=== PATIENT | female | born 1935 | race Caucasian/White ===

== ENCOUNTER 2017-10-01 02:47 | Emergency (ER) | payer MEDICARE ==
[~2017-10-01] VITALS: Ht 167.6 cm; Wt 73.6 kg
[~2017-10-01 02:47] MED LIST: AMLO2.5T2 PO; DIT5T PO; FENO160T30 PO; GLIP2.5T17 PO; LISI-232 PO; SYN0.025T PO
[2017-10-01] MEDS ORDERED: fentaNYL/PF 50MCG/1 ML 2ML syringe IV ONE (03:35)
[2017-10-01] MEDS ORDERED: normal saline 1000ml 1,000 ML IV ONE (03:35)
[2017-10-01] MEDS ORDERED: ondansetron/PF 4mg/2ml inj IV ONE (03:35)
[2017-10-01] MEDS ORDERED: propofol 10mg/ml 20ml vial IV ONE (03:35)
[2017-10-01] MEDS ORDERED: ACET-2615 PO (05:13)
[2017-10-01] MEDS ORDERED: acetaminophen 325mg tablet PO ONE (05:15)
[2017-10-01 05:36] VITALS: BP 198/109
== END 2017-10-01 05:42 | disposition home or self-care (01) ==
LOC: ER 02:48
DX: S43.005A Unspecified dislocation of left shoulder joint, initial encounter (principal); M25.522 Pain in left elbow; Z85.3 Personal history of malignant neoplasm of breast; Z90.49 Acquired absence of other specified parts of digestive tract; Z90.89 Acquired absence of other organs; Z88.2 Allergy status to sulfonamides; Z88.8 Allergy status to other drugs, medicaments and biological substances; Z88.5 Allergy status to narcotic agent; Z79.899 Other long term (current) drug therapy; W01.0XXA Fall on same level from slipping, tripping and stumbling without subsequent striking against object, initial encounter; Y93.89 Activity, other specified; Y92.89 Other specified places as the place of occurrence of the external cause; Y99.8 Other external cause status
CPT/HCPCS: 23650; 73020; 73030; 73080; 93005; 96374; 96375; 99285; A4565; J2405; J2704; J3010; 99152; A4620

== ENCOUNTER 2017-10-10 14:12 | Outpatient (CLI) | payer MEDICARE ==
[~2017-10-10 14:12] MED LIST changes: +ACET-2615 PO
[2017-10-10 14:41] VITALS: BP 167/93
== END 2017-10-10 14:50 | disposition home or self-care (01) ==
LOC: ORTHO 14:12
PROVIDERS: ATTEND Nurse Practitioner Family
DX: S43.005A Unspecified dislocation of left shoulder joint, initial encounter (principal); E11.9 Type 2 diabetes mellitus without complications; Z96.642 Presence of left artificial hip joint; Z88.2 Allergy status to sulfonamides; Z88.8 Allergy status to other drugs, medicaments and biological substances; Z88.6 Allergy status to analgesic agent; Z90.710 Acquired absence of both cervix and uterus; Z85.3 Personal history of malignant neoplasm of breast; Z90.12 Acquired absence of left breast and nipple; W19.XXXA Unspecified fall, initial encounter; Y93.89 Activity, other specified; Y92.89 Other specified places as the place of occurrence of the external cause; Y99.8 Other external cause status
CPT/HCPCS: 73030; 99213

== ENCOUNTER 2017-10-31 15:14 | Outpatient (CLI) | payer MEDICARE ==
[2017-10-31 15:18] VITALS: BP 165/104
== END 2017-10-31 15:55 | disposition home or self-care (01) ==
LOC: ORTHO 15:14
PROVIDERS: ATTEND Nurse Practitioner Family
DX: S43.005D Unspecified dislocation of left shoulder joint, subsequent encounter (principal); I10 Essential (primary) hypertension; E11.9 Type 2 diabetes mellitus without complications; Z88.2 Allergy status to sulfonamides; Z88.8 Allergy status to other drugs, medicaments and biological substances; Z79.899 Other long term (current) drug therapy; Z90.710 Acquired absence of both cervix and uterus; Z96.642 Presence of left artificial hip joint; Z90.12 Acquired absence of left breast and nipple; Z85.3 Personal history of malignant neoplasm of breast; W19.XXXD Unspecified fall, subsequent encounter
CPT/HCPCS: 73030; 99213

== ENCOUNTER 2017-12-06 15:12 | Outpatient (CLI) | payer MEDICARE ==
[2017-12-06 14:58] VITALS: BP 216/109
[~2017-12-06 15:12] MED LIST changes: -ACET-2615 PO
== END 2017-12-06 15:30 | disposition home or self-care (01) ==
LOC: ORTHO 15:12
PROVIDERS: ATTEND Nurse Practitioner Family
DX: S43.005D Unspecified dislocation of left shoulder joint, subsequent encounter (principal); I10 Essential (primary) hypertension; E11.9 Type 2 diabetes mellitus without complications; Z79.84 Long term (current) use of oral hypoglycemic drugs; Z88.2 Allergy status to sulfonamides; Z88.8 Allergy status to other drugs, medicaments and biological substances; Z90.710 Acquired absence of both cervix and uterus; W19.XXXD Unspecified fall, subsequent encounter
CPT/HCPCS: 73030; 99213

== ENCOUNTER 2018-01-21 15:05 | Outpatient (CLI) | payer MEDICARE ==
[2018-01-21 15:03] VITALS: BP 196/104
== END 2018-01-21 16:01 | disposition home or self-care (01) ==
LOC: ORTHO 15:05
PROVIDERS: ATTEND Nurse Practitioner Family
DX: S43.085D Other dislocation of left shoulder joint, subsequent encounter (principal); I10 Essential (primary) hypertension; M19.90 Unspecified osteoarthritis, unspecified site; Z90.710 Acquired absence of both cervix and uterus; Z96.642 Presence of left artificial hip joint; Z88.2 Allergy status to sulfonamides; Z88.5 Allergy status to narcotic agent; Z88.8 Allergy status to other drugs, medicaments and biological substances; W19.XXXD Unspecified fall, subsequent encounter
CPT/HCPCS: 99213

== ENCOUNTER 2018-02-27 15:04 | Outpatient (CLI) | payer MEDICARE ==
[2018-02-27 15:08] VITALS: BP 201/96
== END 2018-02-27 15:46 | disposition home or self-care (01) ==
LOC: ORTHO 15:04
PROVIDERS: ATTEND Nurse Practitioner Family
DX: S43.085D Other dislocation of left shoulder joint, subsequent encounter (principal); M75.02 Adhesive capsulitis of left shoulder; S46.092D Other injury of muscle(s) and tendon(s) of the rotator cuff of left shoulder, subsequent encounter; I10 Essential (primary) hypertension; E11.9 Type 2 diabetes mellitus without complications; Z88.2 Allergy status to sulfonamides; Z88.5 Allergy status to narcotic agent; Z79.84 Long term (current) use of oral hypoglycemic drugs; Z90.710 Acquired absence of both cervix and uterus; Z96.642 Presence of left artificial hip joint; W19.XXXD Unspecified fall, subsequent encounter
CPT/HCPCS: 99213